=== PATIENT | male | born 1960 | race Caucasian/White ===

== ENCOUNTER 2021-04-19 14:07 | Emergency (ER) | payer MEDICARE, MEDICAID ==
[2021-04-19] MEDS ORDERED: Fluorescein 1 MG Ophth Strip EYERT ONE ×2 (14:47→16:23)
== END 2021-04-19 16:53 | disposition home or self-care (01) ==
LOC: JD.ED 14:07
DX: T15.91XA Foreign body on external eye, part unspecified, right eye, initial encounter (principal); K21.9 Gastro-esophageal reflux disease without esophagitis; Z79.899 Other long term (current) drug therapy; Z72.0 Tobacco use; Z86.16 Personal history of COVID-19
CPT/HCPCS: 99283

== ENCOUNTER 2021-05-06 19:05 | Emergency (ER) | payer MEDICARE, MEDICAID ==
[2021-05-06] MEDS ORDERED: Sodium Chloride 0.9% 10 ML Syringe FLUSH PRN (19:40)
[2021-05-06] MEDS ORDERED: Sodium Chloride 0.9% 1,000 ML IV SCH (19:45)
[2021-05-06] MEDS ORDERED: Magnesium Citrate Solution 296 ML Bottle PO ONE (22:03)
== END 2021-05-06 22:16 | disposition home or self-care (01) ==
LOC: JD.ED 19:05
DX: K59.00 Constipation, unspecified (principal); R91.1 Solitary pulmonary nodule; K21.9 Gastro-esophageal reflux disease without esophagitis; Z79.899 Other long term (current) drug therapy; Z86.16 Personal history of COVID-19
CPT/HCPCS: 36415; 74177; 80053; 81001; 83690; 85025; 86140; 99284; A9270; J7030

== ENCOUNTER 2021-05-09 17:20 | Emergency (ER) | payer MEDICARE, MEDICAID | END 2021-05-09 18:12 | disposition home or self-care (01) | LOC: JD.ED 17:20 | DX: M25.561 Pain in right knee (principal); K21.9 Gastro-esophageal reflux disease without esophagitis; Z79.899 Other long term (current) drug therapy; Z72.0 Tobacco use; Z86.16 Personal history of COVID-19 | CPT/HCPCS: 99283 ==

== ENCOUNTER 2021-09-02 15:38 | Emergency (ER) | payer MEDICARE, MEDICAID ==
[2021-09-02 18:08] LABS: CORONAVIRUS COVID-19 NAA NEGATIVE (NEGATIVE)
[2021-09-02 18:27] LABS: ESTIMATED GFR 85 mL/min (>60)
== END 2021-09-02 19:58 | disposition home or self-care (01) ==
LOC: JD.ED 15:38
DX: R40.4 Transient alteration of awareness (principal); K21.9 Gastro-esophageal reflux disease without esophagitis; Z86.16 Personal history of COVID-19; Z79.899 Other long term (current) drug therapy; Z20.822 Contact with and (suspected) exposure to COVID-19
CPT/HCPCS: 0240U; 36415; 70450; 71045; 80053; 81003; 83735; 84484; 85025; 93005; 99284